=== PATIENT | male | born 1965 | race Caucasian/White ===

== ENCOUNTER 2019-10-05 10:09 | Emergency (ER) | payer SELFPAY ==
[~2019-10-05] VITALS: Ht 160 cm; Wt 68.0 kg
[2019-10-05 10:31] VITALS: BP 165/86
--- NOTE | 2019-10-05 10:36 | NUR ---
DR KARIMI AT BEDSIDE EXAMINING PATIENT.
--- NOTE | 2019-10-05 10:37 | NUR ---
54 Y/O M BIBA. PT FOUND ON BUS AO4. PT HAD A POSSIBLE SEIZURE, X3 MINUTES. NO LOC. PT DENIES PAIN, NO WOUNDS FOUND ON PT FROM SEIZURE. NEUROLOGICAL EXAM WNL, FACIAL SYMMETRY, EQUAL HAND SENIOR DATA MODELER, PERRLA LESS THAN 3. SEIZURE PRECAUTIONS IN PLACE, PT ON MONITOR. VSS. NKA
--- NOTE | 2019-10-05 10:48 | NUR ---
PT TO X-RAY BY ARIAS
--- NOTE | 2019-10-05 11:03 | NUR ---
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
--- NOTE | 2019-10-05 11:08 | NUR ---
URINE COLLECTED, SENT TO LAB FOR PROCESSING.
[2019-10-05 11:32] LABS: BASOPHILS % (AUTO) 0.3 % (0.0-2.0); HEMATOCRIT 40.9 % (36-52); HEMOGLOBIN 13.6 g/dL (12.0-18.0); LYMPHOCYTES # (AUTO) 0.6 K/uL (2.0-11.5); LYMPHOCYTES % (AUTO) 5.2 % (20.5-51.1); MEAN CORPUSCULAR HEMOGLOBIN 31 pg (27-31); MEAN CORPUSCULAR HGB CONC 33 g/dL (33-37); MONOCYTES # (AUTO) 0.7 K/uL (0.8-1.0); MONOCYTES % (AUTO) 5.6 % (1.7-9.3); NEUTROPHILS # (AUTO) 10.9 K/uL (1.8-7.7); NEUTROPHILS % (AUTO) 88.9 % (42.2-75.2); PLATELET COUNT (AUTO) 295 K/uL (140-450); RED BLOOD CELL COUNT(AUTO) 4.44 MIL/uL (4.20-6.10); RED CELL DISTRIBUTION WIDTH 13.5 % (11.6-13.7); WHITE BLOOD COUNT (AUTO) 12.3 K/uL (4.8-10.8)
[2019-10-05 11:36] LABS: APPEARANCE,URINE CLEAR (CLEAR); BILIRUBIN,URINE 1+ (NEGATIVE); BLOOD, URINE NEGATIVE (NEGATIVE); COLOR,URINE YELLOW (YELLOW); LEUKOCYTE ESTERASE ,URINE NEGATIVE (NEGATIVE); NITRITE, URINE NEGATIVE (NEGATIVE); UGLUCOSE NEGATIVE (NEGATIVE)
[2019-10-05 11:48] LABS: ALBUMIN 4.3 g/dL (3.4-5.0); ANION GAP 13.9 (8-16); ASPARTATE AMINOTRANSFERASE 46 U/L (15-37); CARBON DIOXIDE 27.4 mmol/L (21-32); CHLORIDE 100 mmol/L (98-107); CREATININE 0.9 mg/dL (0.6-1.3); GFR ARICAN-AMERICAN 113 mL/min (>90); GLUCOSE 139 mg/dL (74-106); POTASSIUM 3.3 mmol/L (3.5-5.1); SODIUM SERUM 138 mmol/L (136-145); TOTAL BILIRUBIN 1.1 mg/dL (0.0-1.0); UREA NITROGEN, BLOOD 15 mg/dL (7-18)
[2019-10-05 12:01] LABS: RBC,URINE NONE SEEN /HPF (0-5); WBC,URINE 0-5 /HPF (0-5)
[2019-10-05 12:36] LABS: BARBITURATE, URINE NEGATIVE ng/ml (NEG <=200); BENZODIAZEPINE, URINE NEGATIVE ng/mL (NEG <=200); CANNABINOID, URINE POSITIVE ng/mL (NEG <=50); COCAINE, URINE NEGATIVE ng/mL (NEG <=300); OPIATE, URINE NEGATIVE ng/mL (NEG <=2000); PHENCYCLIDINE SCREEN,URINE NEGATIVE ng/mL (NEG <=25)
[2019-10-05 13:11] VITALS: BP 138/85
--- NOTE | 2019-10-05 13:12 | NUR ---
Patient discharged with v/s stable. Written and verbal after care instructions given and explained. Patient verbalized understanding. Ambulatory with steady gait. All questions addressed prior to discharge. Advised to follow up with PMD.
== END 2019-10-05 13:12 | disposition home or self-care (01) ==
LOC: MED 10:09
DX: S00.81XA Abrasion of other part of head, initial encounter (principal); S50.811A Abrasion of right forearm, initial encounter; R56.9 Unspecified convulsions; R41.82 Altered mental status, unspecified; X58.XXXA Exposure to other specified factors, initial encounter; Y93.89 Activity, other specified; Y92.89 Other specified places as the place of occurrence of the external cause; Y99.8 Other external cause status
CPT/HCPCS: 36415; 70450; 71045; 80053; 80305; 81001; 85025; 99284; G0482; Q0092